=== PATIENT | female | born 1975 | race Caucasian/White ===

== ENCOUNTER 2022-03-13 08:17 | Outpatient (REF) | payer BC, SELFPAY ==
--- NOTE | ~2022-03-13 | XR_ITS ---
EXAMINATION: RIGHT HAND CLINICAL INFORMATION: Unspecified injury hand and wrist COMPARISON: None TECHNIQUE: 3 views FINDINGS: Carpal alignment is preserved. Note however is made of slight cortical irregularity over the dorsal distal radius suspicious for a cortical buckle fracture. Ulnar styloid intact. XR/XR hand wrist RT IMPRESSION: Query distal radial impaction buckle fracture.
== END 2022-03-13 08:18 | disposition home or self-care (01) ==
LOC: HO.HMGCX 08:17
PROVIDERS: PCP Internal Medicine; Visit Provider Internal Medicine
DX: S69.91XA Unspecified injury of right wrist, hand and finger(s), initial encounter (principal)
CPT/HCPCS: 73110; 73130